=== PATIENT | female | born 1985 | race Caucasian/White ===

== ENCOUNTER → 2016-04-12 | Outpatient (REF) | payer OTHER | LOC: M LAB REF 16:35 | PROVIDERS: ATTEND Physician Assistant | DX: J02.9 Acute pharyngitis, unspecified (principal) ==

== ENCOUNTER → 2016-05-12 | Outpatient (REF) | payer OTHER ==
[2016-05-12 17:00] LABS: BASO % 0.4 % (0.0-1.0); EOS # 0.2 K/mm3 (0.0-0.50); EOS % 2.5 % (0.0-3.0); LARGE UNSTAINED CELL # 0.1 K/mm3 (0.0-0.4); LARGE UNSTAINED CELL % 1.2 % (0.0-4.0); LYMPH # 2.1 K/mm3 (1.5-4.5); LYMPH % 29.1 % (24.0-44.0); MEAN CORPUSCULAR HEMOGLOBIN 28.7 pg (27.0-33.0); MEAN CORPUSCULAR HGB CONC 34.4 g/dl (32.0-36.5); MEAN CORPUSCULAR VOLUME 83.5 fl (80.0-96.0); MONO # 0.4 K/mm3 (0.0-0.8); MONO % 5.5 % (0.0-5.0); NEUTROPHILS # 4.3 K/mm3 (1.8-7.7); NEUTROPHILS % 61.1 % (36.0-66.0); PLATELET COUNT, AUTOMATED 176 k/mm3 (150-450); RED CELL DISTRIBUTION WIDTH 14.2 % (11.5-14.5)
[2016-05-12 18:11] LABS: ALBUMIN/GLOBULIN RATIO 1.11 (1.00-1.93); ALKALINE PHOSPHATASE 144 U/L (45-117); ALT/SGPT 23 U/L (12-78); AMYLASE 47 U/L (25-115); ANION GAP 4 MEQ/L (8-16); AST/SGOT 15 U/L (15-37); BILIRUBIN,DIRECT 0.1 MG/DL (0.0-0.2); BILIRUBIN,TOTAL 0.4 MG/DL (0.2-1.0); BLOOD UREA NITROGEN 10 MG/DL (7-18); CALCIUM LEVEL 8.8 MG/DL (8.5-10.1); CARBON DIOXIDE LEVEL 30 MEQ/L (21-32); CHLORIDE LEVEL 104 MEQ/L (98-107); CREATININE FOR GFR 0.71 MG/DL (0.55-1.02); GLOMERULAR FILTRATION RATE > 60.0 (>60); GLUCOSE, FASTING 94 MG/DL (70-105); POTASSIUM SERUM 4.4 MEQ/L (3.5-5.1); SODIUM LEVEL 138 MEQ/L (136-145); TOTAL PROTEIN 7.6 GM/DL (6.4-8.2)
== END ==
LOC: M LAB REF 16:20
PROVIDERS: ATTEND Physician Assistant
DX: R10.11 Right upper quadrant pain (principal)

== ENCOUNTER → 2016-05-16 | Outpatient (CLI) | payer OTHER ==
--- NOTE | 2016-05-16 10:23 | REP ---
GALLBLADDER ULTRASOUND: 05/16/2016 COMPARISON: 03/11/2015. CLINICAL HISTORY: Nausea, right upper quadrant pain. FINDINGS: The liver is homogeneous in echotexture without focal hepatic mass, intrahepatic biliary dilatation or perihepatic ascites. Gallbladder now shows multiple mobile echogenic stones with shadowing. Gallbladder wall thickness is 3.4 mm representing some mild wall thickening. No pericholecystic fluid or mass. No sonographic Hair's sign was noted. Common duct is 4.6 mm without a filling defect. Limited evaluation of the pancreas as the tail region was obscured by gas shadowing with the remainder of the visualized pancreas was unremarkable. The right kidney is 11 x 5.4 x 4.5 cm. No stone or hydronephrosis, although the lower pole is at least in part obscured by gas shadowing. IMPRESSION: 1. Cholelithiasis with multiple small mobile stones and with mild wall thickening of the gallbladder up to 3.4 mm. No pericholecystic fluid. No mass or sonographic Hair sign. 2. Common duct 4.6 mm and without a filling defect. The liver, visualized portion of pancreas and kidney are unremarkable. Signed by Orville Granger MD 05/16/2016 05:11 P
== END ==
LOC: M RAD 06:59
PROVIDERS: ATTEND Physician Assistant
DX: K80.20 Calculus of gallbladder without cholecystitis without obstruction (principal)

== ENCOUNTER → 2016-08-02 | Day surgery (SDC) | payer OTHER ==
[~2016-08-02] VITALS: Ht 160 cm; Wt 104.3 kg
[~2016-08-02] MED LIST: BUPIVACAINE HCL 0.25% 30 ML VIAL As Ordered ONE; GLYCOPYRROLATE INJ 0.2 MG/ML 2 ML VIAL As Ordered ONE; HEAT0.35 PO; HYDROmorphone HCL 2 MG/ML 1ML VIAL (J1170) As Ordered ONE; KETOROLAC 60 MG/2 ML VIAL (J1885) As Ordered ONE; LIDOCAINE 2% INJ 100 MG/5 ML SDV (FOR ANES.) As Ordered ONE; LR 1,000 ML IV ONE; LR 1,000 ML IV SCH; LR 80 ML IV SCH; METOCLOPRAMIDE INJ 10MG/2ML VIAL (J2765) As Ordered ONE; MIDAZOLAM INJ 2 MG/2 ML VIAL (J2250) As Ordered ONE; NEOSTIGMINE 1MG/ML 5 ML SYRINGE (J2710) As Ordered ONE; NORCO, ANEXSIA 5/325MG TABLET (HYDROcodone/ACETAMINOPHEN) PO PRN; OMEP20CA3 PO; ONDANSETRON 4MG/2ML VIAL (J2405) As Ordered ONE; ONDANSETRON 4MG/2ML VIAL (J2405) IV PRN; PERCOCET 5MG/325MG TAB PO PRN; PROPOFOL 200 MG/20 ML VIAL As Ordered ONE; ROCURONIUM BROMIDE 50 MG/5 ML VIAL/SYRINGE As Ordered ONE; dexameTHASONE 4 MG/ML 1ML VIAL (J1100) As Ordered ONE; ePHEDrine SULFATE 25 MG/5 ML(5MG/ML) SYRINGE As Ordered ONE; fentaNYL 100 MCG/2 ML INJECTION (J3010) IV PRN; fentaNYL 250 MCG/5 ML INJECTION (J3010) As Ordered ONE
[2016-08-02 06:49] LABS: CONTROL LINE UCG INT CTR LINE PRESENT
[2016-08-02 11:49] VITALS: BP 118/66
--- NOTE | 2016-08-02 22:11 | RO ---
DATE OF PROCEDURE: 08/02/2016 PREOPERATIVE DIAGNOSIS: Symptomatic gallstones. POSTOPERATIVE DIAGNOSIS: Cholelithiasis with hydrops of the gallbladder. PROCEDURE PERFORMED: Laparoscopic cholecystectomy. SURGEON: Dr. Antoine Crain ANESTHESIA: General. INDICATION FOR PROCEDURE: The patient is a 30-year-old woman who has had upper abdominal pain. A gallbladder ultrasound confirmed cholelithiasis. She is now for laparoscopic cholecystectomy. DESCRIPTION OF PROCEDURE: The patient was placed on the operating table in a supine position. She received general endotracheal anesthesia. The patient's abdomen was prepped and draped in a sterile fashion. 0.25% Marcaine was infiltrated at her trocar sites. A short supraumbilical transverse incision was made just above a supraumbilical piercing. This was deepened through the subcutaneous tissues to the fascia and the fascia was opened along the midline. The peritoneum was opened bluntly and a Jesus cannula was inserted and the abdomen inflated with carbon dioxide gas. The laparoscope was placed. Initial examination showed abundant omental fat. The patient was tilted to a reverse Trendelenburg position and rolled slightly to the left. The gallbladder was identified. This appeared fairly small and pale in color and perhaps somewhat thickened. The liver appeared normal. Visualized stomach, small bowel and large bowel were normal. Two 5 mm trocars were placed in the right upper quadrant and a third 5 mm trocar was placed in the left upper quadrant. Graspers were inserted. The gallbladder was grasped at the fundus and elevated. Dissection proceeded beginning in the area of the gallbladder neck. The peritoneum was opened, and the pericholecystic fibrofatty tissue was opened. The cystic duct was identified. There was a suggestion of a stone impacted in the gallbladder neck. Once the cystic duct had been dissected over a short distance, the duct was doubly clipped with hemoclips and divided. The cholecystic artery was then identified and was doubly clipped with hemoclips and divided. The gallbladder was then dissected free from the gallbladder bed using cautery dissection. In the course of dissection, the gallbladder was perforated and a small amount of clear watery fluid was released from the gallbladder consistent with hydrops. The dissection proceeded to completely free the gallbladder and this was placed in an Endopouch. The right upper quadrant was irrigated with saline and inspected. There was no bleeding and no bile leak identified. The patient was returned to a flat position. The abdomen was deflated and the trocars were removed. The gallbladder was recovered through the Jesus site and sent for permanent pathology. The peritoneum at the Jesus site was closed with #2-0 Vicryl. The fascia was then closed with interrupted simple sutures of #2-0 Vicryl. The skin incisions were all closed with buried #5-0 Vicryl and Steri-Strips. Light dressings were applied. The patient tolerated the procedure well without apparent complication. She was awakened in the operating room, extubated and moved to the recovery room in stable condition. [facility]SCAR
== END ==
LOC: M SDC 06:03
PROVIDERS: ATTEND Surgery
DX: K80.10 Calculus of gallbladder with chronic cholecystitis without obstruction (principal); K82.1 Hydrops of gallbladder; K21.9 Gastro-esophageal reflux disease without esophagitis; Z88.5 Allergy status to narcotic agent; Z91.040 Latex allergy status; Z79.899 Other long term (current) drug therapy
CPT/HCPCS: 47562; 84703; 88304; J1100; J1170; J1885; J2250; J2405; J2710; J2765; J3010

== ENCOUNTER 2017-06-21 10:07 | Emergency (ER) | payer OTHER ==
[2017-06-21] MEDS: ADACEL/BOOSTRIX VACCINE (DIPHTH/PERTUSS/ACELL/TETANUS)0.5ML SYR (90715) IM (10:49)
== END 2017-06-21 12:22 | disposition home or self-care (01) ==
LOC: M ED 10:07
DX: S70.351A Superficial foreign body, right thigh, initial encounter (principal); X58.XXXA Exposure to other specified factors, initial encounter; Y92.89 Other specified places as the place of occurrence of the external cause; K21.9 Gastro-esophageal reflux disease without esophagitis; Z88.5 Allergy status to narcotic agent; Z91.040 Latex allergy status; Z79.899 Other long term (current) drug therapy
CPT/HCPCS: 90715

== ENCOUNTER → 2021-07-26 | Outpatient (CLI) | payer OTHER ==
[~2021-07-26] MED LIST changes: +AUGM875T28 PO; -BUPIVACAINE HCL 0.25% 30 ML VIAL As Ordered ONE; -GLYCOPYRROLATE INJ 0.2 MG/ML 2 ML VIAL As Ordered ONE; -HYDROmorphone HCL 2 MG/ML 1ML VIAL (J1170) As Ordered ONE; -KETOROLAC 60 MG/2 ML VIAL (J1885) As Ordered ONE; -LIDOCAINE 2% INJ 100 MG/5 ML SDV (FOR ANES.) As Ordered ONE; -LR 1,000 ML IV ONE; -LR 1,000 ML IV SCH; -LR 80 ML IV SCH; -METOCLOPRAMIDE INJ 10MG/2ML VIAL (J2765) As Ordered ONE; -MIDAZOLAM INJ 2 MG/2 ML VIAL (J2250) As Ordered ONE; -NEOSTIGMINE 1MG/ML 5 ML SYRINGE (J2710) As Ordered ONE; -NORCO, ANEXSIA 5/325MG TABLET (HYDROcodone/ACETAMINOPHEN) PO PRN; +OMEP1CAP73 PO; -OMEP20CA3 PO; -ONDANSETRON 4MG/2ML VIAL (J2405) As Ordered ONE; -ONDANSETRON 4MG/2ML VIAL (J2405) IV PRN; -PERCOCET 5MG/325MG TAB PO PRN; -PROPOFOL 200 MG/20 ML VIAL As Ordered ONE; -ROCURONIUM BROMIDE 50 MG/5 ML VIAL/SYRINGE As Ordered ONE; -dexameTHASONE 4 MG/ML 1ML VIAL (J1100) As Ordered ONE; -ePHEDrine SULFATE 25 MG/5 ML(5MG/ML) SYRINGE As Ordered ONE; -fentaNYL 100 MCG/2 ML INJECTION (J3010) IV PRN; -fentaNYL 250 MCG/5 ML INJECTION (J3010) As Ordered ONE
[2021-07-26 17:25] LABS: RHEUMATOID FACTOR QUANT < 10.0 IU/ML (<15.0); TOTAL PROTEIN 7.2 GM/DL (6.4-8.2)
[2021-07-27 13:56] LABS: ALBUMIN 4.15 GM/DL (3.29-5.55); ALBUMIN % 57.6 % (55.8-66.1); ALPHA-1-GLOBULIN % 4.5 % (2.9-4.9); ALPHA-1-GLOBULINS 0.32 GM/DL (0.17-0.41); ALPHA-2-GLOBULINS 0.65 GM/DL (0.42-0.99); BETA-1-GLOBULINS 0.49 GM/DL (0.28-0.60); BETA-1-GLOBULINS % 6.8 % (4.7-7.2); BETA-2-GLOBULINS 0.38 GM/DL (0.19-0.55); BETA-2-GLOBULINS % 5.3 % (3.2-6.5); GAMMA GLOBULIN % 16.8 % (11.1-18.8); GAMMA GLOBULINS 1.21 GM/DL (0.65-1.58)
== END ==
LOC: M PLALAB 15:02
PROVIDERS: ATTEND Psychiatry & Neurology Neurology
DX: G43.909 Migraine, unspecified, not intractable, without status migrainosus (principal); G50.1 Atypical facial pain

== ENCOUNTER 2023-12-07 09:10 | Emergency (ER) | payer OTHER ==
[~2023-12-07] VITALS: Ht 160 cm; Wt 110.4 kg
[2023-12-07] MEDS ORDERED: ZONI50CA11 (09:30)
[2023-12-07] MEDS ORDERED: RIME75TA (09:30)
[2023-12-07 10:16] LABS: BASO # 0.1 10^3/uL (0.0-0.2); BASO % 0.9 % (0.0-1.0); EOS # 0.1 10^3/uL (0.0-0.5); EOS % 1.4 % (0.0-3.0); LYMPH # 1.5 10^3/uL (1.5-5.0); LYMPH % 26.8 % (24.0-44.0); MEAN CORPUSCULAR HEMOGLOBIN 26.8 pg (27.0-33.0); MEAN CORPUSCULAR HGB CONC 32.4 g/dl (32.0-36.5); MEAN CORPUSCULAR VOLUME 82.8 fl (80.0-96.0); MONO # 0.4 10^3/uL (0.0-0.8); MONO % 6.5 % (2.0-8.0); NEUTROPHILS # 3.7 10^3/uL (1.5-8.5); NEUTROPHILS % 64.2 % (36.0-66.0); PLATELET COUNT, AUTOMATED 202 10^3/uL (150-450); RED BLOOD COUNT 4.47 10^6/uL (4.00-5.40); WHITE BLOOD COUNT 5.7 10^3/uL (4.0-10.0)
[2023-12-07 10:52] LABS: BLOOD UREA NITROGEN 11 MG/DL (9-23); CALCIUM LEVEL 9.1 MG/DL (8.5-10.1); CARBON DIOXIDE LEVEL 26 MMOL/L (20-31); CHLORIDE LEVEL 109 MMOL/L (98-107); CREATININE FOR GFR 0.76 MG/DL (0.55-1.30); GLOMERULAR FILTRATION RATE > 60.0 (>60); GLUCOSE, FASTING 99 MG/DL (60-100); POTASSIUM SERUM 4.3 MMOL/L (3.5-5.1); SODIUM LEVEL 139 MMOL/L (136-145)
[2023-12-07 10:53] LABS: HCG, SERUM QUALITATIVE NEGATIVE (NEGATIVE)
[2023-12-07] MEDS ORDERED: ISOVUE-370 76% 100ML VIAL As Ordered ONE (11:46)
[2023-12-07] MEDS: KETOROLAC 30 MG/ML 1ML VIAL IM ONE (11:53)
[2023-12-07 13:06] LABS: LIPASE 30 U/L (12-53)
[2023-12-07 14:05] VITALS: BP 124/78; TEMP 98.1; O2SAT 98
== END 2023-12-07 14:06 | disposition home or self-care (01) ==
LOC: M ED 09:10
DX: M54.50 Low back pain, unspecified (principal); R94.31 Abnormal electrocardiogram [ECG] [EKG]; I10 Essential (primary) hypertension; F10.10 Alcohol abuse, uncomplicated; Z88.5 Allergy status to narcotic agent; Z91.040 Latex allergy status; Z79.899 Other long term (current) drug therapy
CPT/HCPCS: 74176; 80048; 81001; 83690; 84703; 85025; 93005; 96372; 99284; J1885

== ENCOUNTER → 2024-10-04 | Outpatient (REF) | payer OTHER ==
[~2024-10-04] MED LIST changes: +RIME75TA; +ZONI50CA11
[2024-10-04 13:00] LABS: VITAMIN B12 LEVEL 417.0 PG/ML (211-911)
[2024-10-04 13:02] LABS: IRON (FE) 27.0 UG/DL (50-170); PERCENT SATURATION 7.4 % (13.2-45.0)
== END ==
LOC: M LAB REF 12:22
PROVIDERS: ATTEND Internal Medicine
DX: D64.9 Anemia, unspecified (principal); R14.0 Abdominal distension (gaseous)

== ENCOUNTER 2024-11-29 07:45 | Day surgery (SDC) | payer OTHER ==
[~2024-11-29] VITALS: Ht 160 cm; Wt 107.0 kg
[~2024-11-29 07:45] MED LIST changes: +FERR324T21 PO; +PANT20TA6 PO
[2024-11-29] MEDS ORDERED: OMEP1CAP73 PO (08:15)
[2024-11-29] MEDS ORDERED: ZONI100C67 PO (08:15)
[2024-11-29] MEDS ORDERED: LIDOCAINE 2% 100 MG/5 ML SDV (FOR ANES.) As Ordered ONE (08:48)
[2024-11-29 08:59] VITALS: TEMP 97.3
[2024-11-29 09:14] VITALS: BP 131/75; O2SAT 99
== END 2024-11-29 09:18 | disposition home or self-care (01) ==
LOC: M OPP 07:45
PROVIDERS: ATTEND Surgery
DX: K31.7 Polyp of stomach and duodenum (principal); K21.9 Gastro-esophageal reflux disease without esophagitis; Z88.5 Allergy status to narcotic agent; Z91.040 Latex allergy status; Z79.899 Other long term (current) drug therapy
CPT/HCPCS: 43239; 88305; J3010

== ENCOUNTER → 2024-12-17 | Outpatient (REF) | payer OTHER ==
[~2024-12-17] MED LIST changes: +ZONI100C67 PO
[2024-12-17 15:12] LABS: IRON (FE) 60.0 UG/DL (50-170); PERCENT SATURATION 17.5 % (13.2-45.0)
== END ==
LOC: M LAB REF 13:42
PROVIDERS: ATTEND Internal Medicine
DX: D64.9 Anemia, unspecified (principal)

== ENCOUNTER → 2025-01-23 | Outpatient (CLI) | payer OTHER ==
[~2025-01-23] MED LIST changes: +BARIUM SULFATE 700 MG TABLET As Ordered ONE; +E-Z-PAQUE 96% w/w SUSP 176 GM BTL As Ordered ONE; +VARIBAR NECTAR 40% w/v 240ML SUSP BTL As Ordered ONE; +VARIBAR PUDDING 40% w/v 230ML TUBE As Ordered ONE
== END ==
LOC: M RAD 13:19
PROVIDERS: ATTEND Surgery
DX: R13.10 Dysphagia, unspecified (principal)